=== PATIENT | female | born 1975 | race African-American/Black ===

== ENCOUNTER → 2017-05-08 | Outpatient (CLI) | payer OTHER ==
--- NOTE | 2017-05-09 14:32 | MAMMOGRAPHY REPORT ---
BILATERAL DIGITAL SCREENING MAMMOGRAM TOMOSYNTHESIS WITH CAD: 05/08/2017 CLINICAL HISTORY: Routine screening. Baseline exam. TECHNIQUE: Breast tomosynthesis in addition to standard 2D mammography was performed. Current study was also evaluated with a Computer Aided Detection (CAD) system. COMPARISON: No prior exams were available for comparison. BREAST COMPOSITION: The tissue of both breasts is extremely dense, which lowers the sensitivity of m ammography. FINDINGS: No suspicious masses, calcifications, or areas of architectural distortion are noted in ei ther breast. Scattered bilateral punctate and round benign-appearing calcifications are noted bilate rally. IMPRESSION: ACR BI-RADS CATEGORY 2: BENIGN There is no mammographic evidence of malignancy. A 1 year screening mammogram is recommended. The pa tient will receive written notification of the results. Approximately 10% of breast cancers are not detected with mammography. A negative mammographic report should not delay biopsy if a clinically suggestive mass is present. Opal Landers M.D. /:05/08/2017 14:40:40 Gate Clerk: Fernanda ROMANR, M, [facility] letter sent: Normal 1/2 BI-RADS Code: ACR BI-RADS Category 2: Benign
== END | disposition home or self-care (01) ==
LOC: C.MAMM 10:25
PROVIDERS: ATTEND Obstetrics & Gynecology
DX: Z12.31 Encounter for screening mammogram for malignant neoplasm of breast (principal)

== ENCOUNTER → 2017-05-15 | Outpatient (CLI) | payer OTHER | END | disposition home or self-care (01) | LOC: C.PAPS 14:06 | PROVIDERS: ATTEND Obstetrics & Gynecology | DX: Z12.4 Encounter for screening for malignant neoplasm of cervix (principal) ==

== ENCOUNTER → 2017-08-17 | Outpatient (CLI) | payer OTHER ==
--- NOTE | 2017-08-17 13:41 | DIAGNOSTIC IMAGING REPORT ---
LUMBAR SPINE W/O CONTRAST HISTORY: Pain. Radiculopathy. LUMBAR RADICULOPATHY TECHNIQUE: Multiplanar multisequence MRI of the lumbar spine was performed without the use of contrast. COMPARISON: None. FINDINGS: For the purpose of the report the L5-S1 disc space will be located on axial image 27 of 30. Sagittal images confirm the uterus to be retroflexed. The left ovary is reasonably well seen with several cysts measuring up to 3 cm. The right ovary is not well seen. L1-L2: No significant central canal or neural foraminal narrowing. L2-L3: No significant central canal or neural foraminal narrowing. L3-L4: No significant central canal or neural foraminal narrowing. L4-L5: No significant central canal or neural foraminal narrowing. L5-S1: No significant central canal or neural foraminal narrowing. IMPRESSION: 1. Normal MRI of the lumbar spine. 2. Multicystic left ovary with cyst measuring up to 3 cm. 3. Retroflexed uterus. The above report was generated using voice recognition software. It may contain grammatical, syntax or spelling errors. Electronically signed by: Librado Xie M.D. 08/17/2017 1:39 PM Dictated Date/Time: 08/17/2017 1:31 PM
== END | disposition home or self-care (01) ==
LOC: C.MRIBC 12:42
PROVIDERS: ATTEND Pain Medicine Interventional Pain Medicine
DX: M47.816 Spondylosis without myelopathy or radiculopathy, lumbar region (principal); N83.202 Unspecified ovarian cyst, left side; N85.4 Malposition of uterus

== ENCOUNTER → 2017-10-04 | Outpatient (CLI) | payer OTHER ==
--- NOTE | 2017-10-04 12:56 | DIAGNOSTIC IMAGING REPORT ---
LUMBAR SPINE WITHOUT CT DOSE: 507.39 mGy.cm HISTORY: Pain LUMBAR SPINE PAIN TECHNIQUE: Multiaxial CT images of the lumbar spine were performed and reformatted in the sagittal and coronal plane without the use of contrast. A dose lowering technique was utilized adhering to the principles of ALARA. COMPARISON: MRI 08/17/2017 FINDINGS: No fractures. No subluxation. Paraspinal soft tissues are unremarkable. There is a slight levoscoliosis. There is no evidence for disc herniation or bony spinal stenosis. Transaxial evaluation of the posterior elements demonstrates a well-circumscribed complex cystic mild expansion of the right superior facet of the posterior element of L5. There is mild reactive sclerosis of the right pedicle and right transverse process with this most likely on a degenerative basis. An underlying complex bone cyst at this site must be considered. There is slight bony fragmentation of this component of the facet although there is no evidence for bony compromise of the neuroforamina or spinal canal. All remaining posterior elements are intact throughout. Vertebral body stature is normal throughout. Disc spaces are well-preserved. IMPRESSION: 1. This study is remarkable for a complex cystic expansion of the superior aspect of the right posterior facet complex extending from the L5 vertebral posterior arch and pedicle. 2. This measures 1.5 x 1.7 cm, And demonstrates slight fragmentation at the superior aspect of the facet articulating surface.. 3. Moderate reactive sclerosis of the right posterior facet and posterior arch presumably on a degenerative basis. 4. No evidence for spondylolysis or spondylolisthesis. 5. Study is otherwise normal with no evidence for bony compromise of the spinal canal or neural foramina. The above report was generated using voice recognition software. It may contain grammatical, syntax or spelling errors. Electronically signed by: Librado Xie M.D. 10/04/2017 12:55 PM Dictated Date/Time: 10/04/2017 12:41 PM
== END | disposition home or self-care (01) ==
LOC: C.CTS 12:15
PROVIDERS: ATTEND Orthopaedic Surgery Orthopaedic Surgery of the Spine
DX: M47.816 Spondylosis without myelopathy or radiculopathy, lumbar region (principal)